=== PATIENT | female | born 1975 | race Caucasian/White ===

== ENCOUNTER 2019-12-12 06:21 | Day surgery (SDC) | payer OTHER, SELFPAY ==
[2019-10-03 14:56] VITALS: BMI 61.9
--- NOTE | 2019-12-12 | GASB_PTH ---
PATIENT: JOSE BONILLA LOC: EN U#:[id number] AGE/SX: 44/F ROOM: RE12/12/[address]: Dr. Edwin Michael MD : 1975 BED: DIS: 12/12/2019 SPEC #: [id number] RECD: 12/12/19 12:29 STATUS: NILO REJoe #: [id number] NARA: 12/12/19 00:[address]: Edwin Michael DEPT: SURGICAL PATHOLOGY RECD BY: Steve Silva ENTERED: 12/12/19 12:30 SP TYPE: Gastric Bx OTHR DR: Dr. Jone Ervin, DO Tissues: Gastric mucous membrane Procedures: Surgery Specimen Level IV HEADER OPERATION: EGD ([facility]) PRE-OP DIAGNOSIS: Nausea, vomiting, calculus of gallbladder TISSUE SUBMITTED: Antrum biopsy for histo and H. pylori MICROSCOPIC DIAGNOSIS Antrum biopsy: Minimal chronic inflammation. SJ:luz maria 12/13/19 COMMENT The results of immunohistochemistry for Helicobacter pylori will be reported separately ([id number]). MICROSCOPIC DESCRIPTION Slides are reviewed. GROSS DESCRIPTION Received in fixative is one container labeled with the patient's name and designated antrum biopsy. The specimen consists of one irregular fragment of light raman soft tissue that measures 0.5 x 0.1 x 0.1 cm. The specimen is totally submitted in one cassette. / AM:rg 12/12/19 TC:3 CPT: 30996
[2019-12-12 06:41] VITALS: BP 136/70; PULSE 81; RESP 18; TEMP 36.6; O2SAT 99; BMI 61.9
[2019-12-12 06:46] LABS: Bedside Glucose 148 mg/dL (70-110)
[2019-12-12] MEDS: Lactated Ringers 1,000 ML 100 ML IV (07:00)
--- NOTE | 2019-12-12 07:22 | HP.PCM_ITS ---
History and Physical Date of Admission: 12/12/19 [facility] 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 Is patient in pain?: Yes (RUQ abdomen) Allergies Opioids - Morphine Analogues Allergy (Mild, Verified 10/03/19 14:58) Other Penicillins Allergy (Mild, Verified 10/03/19 14:58) Unknown shellfish derived Allergy (Mild, Verified 10/03/19 14:58) Unknown Sulfa (Sulfonamide Antibiotics) Allergy (Mild, Verified 10/03/19 14:58) Other Medications albuterol sulfate 90 mcg/actuation aerosol inhaler INHALATION 10/03/19 [History Confirmed 10/03/19] duloxetine 60 mg capsule,delayed release cap PO 10/03/19 [History Confirmed 10/03/19] esomeprazole magnesium 40 mg capsule,delayed release cap PO 10/03/19 [History Confirmed 10/03/19] furosemide 40 mg tablet tab PO 10/03/19 [History Confirmed 10/03/19] gabapentin 600 mg tablet tab PO 10/03/19 [History Confirmed 10/03/19] lisinopril 20 mg tablet tab PO 10/03/19 [History Confirmed 10/03/19] lorazepam 1 mg tablet 1 mg PO DAILY PRN 10/03/19 [History Confirmed 10/03/19] metformin 500 mg tablet,extended release 24 hr tab PO 10/03/19 [History Confirmed 10/03/19] methocarbamol 750 mg tablet tab PO 10/03/19 [History Confirmed 10/03/19] montelukast 10 mg tablet tab PO 10/03/19 [History Confirmed 10/03/19] norethindrone (contraceptive) 0.35 mg tablet tab PO 10/03/19 [History Confirmed 10/03/19] prednisone 10 mg tablet tab PO 10/03/19 [History Confirmed 10/03/19] promethazine 25 mg rectal suppository supp RC 10/03/19 [History Confirmed 10/03/19] simvastatin 40 mg tablet tab PO 10/03/19 [History Confirmed 10/03/19] topiramate 50 mg tablet 50 mg PO BID 10/03/19 [History Confirmed 10/03/19] FOR[facility] Medical History Asthma (Acute) CAD (coronary artery disease) (Acute) Diabetes (Acute) Diarrhea (Acute) Nausea (Acute) Obesity (Acute) Reflux gastritis (Acute) HTN (hypertension) (Chronic) Surgical History Dilatation of bladder (Acute) S/P hysterectomy (Acute) S/P tonsillectomy (Acute) S/P wisdom tooth extraction (Acute) s/p right elbow surgery (Acute) Social History (Updated 10/07/19 @ 12:[address] Edwin Michael MD) Smoking Status: Former smoker alcohol intake: never HPI HPI HPI: JOSE BONILLA, is a 44 F who presents to the office today for Evaluation of some nausea vomiting and diarrhea. Patient states she is only able to eat chicken noodle soup. She stopped all pops and carbonated beverages. She has had increased gas. This is been ongoing since May 2019. She also States that she has been under a lot of stress lately. She says that in 2010 she had an upper and lower scope which was normal per the patient. However they started her on antibiotics at that time which did improve her abdominal discomfort. She had a gallbladder ultrasound which showed a 4 mm focus of either a polyp or a stone in her gallbladder. The gallbladder was normal in caliber. There was no pericholecystic fluid. There was a negative Manning sign. And her common bile duct was 6 mm. ROS General General: Yes weight change and fatigue; no appetite, colon cancer, breast cancer or weakness HEENT HEENT: No difficulty swallowing, eye injury, eye surgery, swollen glands or hoarseness Endo Endocrine: Yes diabetes mellitus; no thyroid disease, thyroid cancer, Hair loss, heat intolerance or cold intolerance Skin Skin: No rash or changing moles Breast Breast: No left breast lump, right breast lump, nipple discharge, breast pain, abnormal mammogram, abnormal US or breast enlargement Musc Musculoskeletal: Yes back problems and arthritis; no rheumatoid arthritis, gout or joint pain Cardio Cardiovascular: Yes high blood pressure; no murmur, pacemaker, heart disease, atrial fibrillation, heart attack, heart stent, palpitations, shortness of breat with exertion or chest pain Psych Psychiatric: Yes depression and anxiety; no hearing voices Resp Respiratory: Yes shortness of breath, Yes sleep apnea, No cough, No COPD, Yes asthma, No emphysema, No wheezing Gastro Gastrointestinal: Yes abdominal pain, Yes nausea or vomiting, Yes diarrhea, Yes constipation, No blood in stool, Yes acid reflux, Yes hemorrhoids, No ulcers, Yes gallbladder problem, No black,tarry stools Get Hematologic: No blood thinners, No blood disorders, No bleeding, No anemia, No blood clots Neuro Neurologic: No system reviewed and no additional complaints, except as docu, No as per HPI, No abnormal walking, No abnormal hearing, No abnormal movements, No abnormal speech, No behavioral changes, No burning sensations, No confusion, No seizure-like activity, No unsteadiness, No dizziness, No localized weakness, No frequent falls, No headache(s), No lack of coordination, No loss of vision, No memory loss, Yes numbness, No other visual disturbances, No radiating pain, No restless legs, No sensory deficit, No fainting, Yes tingling, No tremor(s), No weakness, No other Exam Const General: no acute distress, well developed, well hydrated Orientation: oriented to person, oriented to place, oriented to time [place] Head: normocephalic, atraumatic Ears: external ears normal Mouth: moist mucous membranes Eyes Sclera: sclerae normal Pupils: normal by confrontation Neck Neck: no lymphadenopathy noted Neck mass: No Thyroid: thyroid normal, symmetrical Chest Chest palpation & inspection: normal inspection of the chest Breast Palpation: No nipple discharge Resp Effort & Inspection: normal respiratory effort Auscultation: clear to auscultation bilaterally Percussion: percussion normal Cardio Rate: regular rate Rhythm: regular rhythm Heart Sounds: no murmurs GI Inspection: obesity (Morbid obesity) Palpation: soft, no hepatosplenomegaly, no masses, nontender Rectal Exam: other Other: Rectal exam deferred. Extrem General: normal to inspection, no clubbing, cyanosis or edema Assessment & Plan Problems 1. Nausea vomiting and diarrhea R11.2; R19.7 2. Calculus of gallbladder with chronic cholecystitis without obstruction K80.10 Plan I have discussed the above with the patient. I have offered the patient esophagogastroduodenoscopy for evaluation. I have explained the risks/benefits of the procedure and described the procedure. I have discussed the risks with the patient, including but not limited to: infection, bleeding, perforation of the GI tract requiring emergency surgery, inability to complete the procedure, injury to any internal organs, complications of anesthesia, etc. - the patient understands and agrees to proceed. I have answered all the patient's questions to the patient's satisfaction and the patient has no further questions. The patient has been given instructions for the colon cleansing preparation. If the upper scope is negative then she may need to be referred to a tertiary referral center for a laparoscopic cholecystectomy Coding Level of Care Code Off vis,new,level 3 Diagnoses Nausea vomiting and diarrhea R11.2; R19.7 Calculus of gallbladder with chronic cholecystitis without obstruction K80.10 ??Cholelithiasis location: gallbladder ??Cholecystitis acuity: chronic <Electronically signed by Edwin Michael MD> Date _ Edwin Michael MD I have re-examined the patient. There are no clinical changes since date of exam.
--- NOTE | 2019-12-12 07:30 | IMM_PTH ---
PATIENT: JOSE BONILLA LOC: EN U#:[id number] AGE/SX: 44/F ROOM: RE12/12/[address]: Dr. Edwin Michael MD : 1975 BED: DIS: 12/12/2019 SPEC #: [id number] RECD: 12/12/19 12:40 STATUS: SOUT REJoe #: [id number] NARA: 12/12/19 07:[address]: Edwin Michael DEPT: IMMUNOHISTOCHEMISTRY RECD BY: Maria Del Carmen Bella ENTERED: 12/12/19 12:41 SP TYPE: IMMUNO OTHR DR: Dr. Jone Ervin DO Tissues: Stomach, NOS Procedures: H Pylori (initial) PHYSICIAN & INSTITUTION [place] [id number] SPECIMEN INFORMATION: Tissue Source: Antrum biopsy Clinical Info: Nausea, vomiting, calculus of gallbladder Specimen Number: [id number] CPT code: 04652 METHODOLOGY: Deparaffinized sections of prefer/formalin-fixed tissue or PAP/DQ stained slides are incubated with monoclonal/polyclonal antibodies/oligonucleotide probes. Localization is made via biotin free immunoperoxidase method. Appropriate controls are performed and reacted as expected. Results on target cell population are indicated in the following table: RESULTS: ANTIBODY / CLONE RESULT H Pylori (polyclonal) negative These tests were developed and their performance characteristics determined by [facility]. They may not have been cleared or approved by the U.S. Food and Drug Administration. The FDA has determined that such clearance or approval is not necessary. INTERPRETATION: Antrum biopsy: Negative for Helicobacter pylori organisms. SJ:luz maria 12/14/19
--- NOTE | 2019-12-12 07:43 | OP.EGD_ITS ---
Patient Name: Stefany Reid Procedure Date: 12/12/2019 7:23 AM Date of : 1975 Age: 44 Procedure: Upper GI endoscopy Indications: Diarrhea, Vomiting Providers: Edwin Michael MD Referring MD: Jone Ervin Medicines: See the Anesthesia note for documentation of the administered medications Patient Profile: This is a 44 year old female. Refer to note in patient chart for documentation of history and physical. Complications: No immediate complications. Procedure: Pre-Anesthesia Assessment: - Prior to the procedure, a History and Physical was performed, and patient medications and allergies were reviewed. The patient's tolerance of previous anesthesia was also reviewed. The risks and benefits of the procedure and the sedation options and risks were discussed with the patient. All questions were answered, and informed consent was obtained. Prior Anticoagulants: The patient has taken no previous anticoagulant or antiplatelet agents. ASA Grade Assessment: III - A patient with severe systemic disease. After reviewing the risks and benefits, the patient was deemed in satisfactory condition to undergo the procedure. After obtaining informed consent, the endoscope was passed under direct vision. Throughout the procedure, the patient's blood pressure, pulse, and oxygen saturations were monitored continuously. The gastroscope was introduced through the mouth, and advanced to the second part of duodenum. The upper GI endoscopy was accomplished without difficulty. The patient tolerated the procedure well. Scope In: 7:34:23 AM Scope Out: 7:37:30 AM Total Procedure Duration Time 0 hours 3 minutes 7 seconds Findings: The examined esophagus was normal. No biopsies or other specimens were collected for this exam. The Z-line was regular and was found 40 cm from the incisors. A large amount of food (residue) was found on the greater curvature of the stomach. Biopsies were taken with a cold forceps for Helicobacter pylori testing. The examined duodenum was normal. No biopsies or other specimens were collected for this exam. Impression: - Normal esophagus. No specimens collected. - Z-line regular, 40 cm from the incisors. - A large amount of food (residue) in the stomach. Biopsied. - Normal examined duodenum. No specimens collected. Recommendation: - Discharge patient to home. - Resume previous diet. - Continue present medications. - Await pathology results. - Repeat upper endoscopy (date not yet determined) for surveillance. - Return to my office in 1 week. - Do a gastric emptying study at appointment to be scheduled. Procedure Code(s): --- Professional --- 30584, Esophagogastroduodenoscopy, flexible, transoral; with biopsy, single or multiple Diagnosis Code(s): --- Professional --- R19.7, Diarrhea, unspecified R11.10, Vomiting, unspecified CPT copyright 2017 [employer]. All rights reserved. The codes documented in this report are preliminary and upon supervisor sample preparation review may be revised to meet current compliance requirements. MD Edwin Hurt MD 12/12/2019 7:43:17 AM This report has been signed electronically. Number of Addenda: 0 Note Initiated On: 12/12/2019 7:23 AM
--- NOTE | 2019-12-12 07:43 | OP.CCLET_ITS ---
12/12/2019 Jone Ervin Re : Upper GI endoscopy procedure for Stefany Reid Dear [place] This procedure was performed on Thursday, December 12, 2019. My impressions and recommendations are as follows: Impressions : - Normal esophagus. No specimens collected. - Z-line regular, 40 cm from the incisors. - A large amount of food (residue) in the stomach. Biopsied. - Normal examined duodenum. No specimens collected. Recommendations : - Discharge patient to home. - Resume previous diet. - Continue present medications. - Await pathology results. - Repeat upper endoscopy (date not yet determined) for surveillance. - Return to my office in 1 week. - Do a gastric emptying study at appointment to be scheduled. My findings are described in the full procedure note, which is enclosed. If I can be of further assistance, please feel free to contact me at Doctor phone number(s): , Fax: [phone], Work: . Sincerely, MD Edwin Hurt MD 12/12/2019 7:43:17 AM This report has been signed electronically.
[2019-12-12 07:45] VITALS: BP 105/88; BP 107/77; BP 136/70; PULSE 79; RESP 16; TEMP 36.3; O2SAT 100; O2SAT 99
[2019-12-12 07:50] VITALS: BP 118/89; BP 136/70; PULSE 77; RESP 16; O2SAT 95
[2019-12-12 07:55] VITALS: BP 111/84; BP 136/70; PULSE 75; RESP 16; TEMP 36.2; O2SAT 97
[2019-12-12 08:25] VITALS: BP 136/70
== END 2019-12-12 08:45 | disposition home or self-care (01) ==
LOC: EN 06:22 → AC 06:23
PROVIDERS: PCP Family Medicine; Referring Provider Family Medicine; Visit Provider Surgery
PROC: 0DJ08ZZ Inspection of Upper Intestinal Tract, Via Natural or Artificial Opening Endoscopic (ICD-10-PCS; CPT 43235; principal; 2019-12-12 07:25)
DX: K29.50 Unspecified chronic gastritis without bleeding (principal); K80.10 Calculus of gallbladder with chronic cholecystitis without obstruction; E11.9 Type 2 diabetes mellitus without complications; I10 Essential (primary) hypertension; E78.00 Pure hypercholesterolemia, unspecified; J45.909 Unspecified asthma, uncomplicated; G47.30 Sleep apnea, unspecified; G25.81 Restless legs syndrome; K21.9 Gastro-esophageal reflux disease without esophagitis; F32.9 Major depressive disorder, single episode, unspecified; F41.9 Anxiety disorder, unspecified; E66.9 Obesity, unspecified; Z68.44 Body mass index [BMI] 60.0-69.9, adult; Z79.51 Long term (current) use of inhaled steroids; Z79.84 Long term (current) use of oral hypoglycemic drugs; Z88.0 Allergy status to penicillin; Z88.5 Allergy status to narcotic agent; Z88.2 Allergy status to sulfonamides; Z87.891 Personal history of nicotine dependence; Z87.19 Personal history of other diseases of the digestive system
CPT/HCPCS: 43239; 82962; 88305; 88342; J7120; J2405

== ENCOUNTER → 2019-12-26 10:21 | Outpatient (CLI) | payer OTHER, SELFPAY ==
[2019-12-12 06:41] VITALS: BMI 61.9
--- NOTE | 2019-12-26 10:22 | NM_ITS ---
CLINICAL: 44-year-old female with reported history of right upper quadrant abdominal pain and nausea. RADIONUCLIDE HEPATOBILIARY SCINTIGRAPHY COMPARISON: None available FINDINGS: Following the intravenous administration of 5.2 mCi of 99m Tc Mebrofenin, hepatobiliary images reveal: 1. Relatively prompt and homogeneous radiopharmaceutical concentration is noted by a normal sized liver. No parenchymal defects are identified. 2. Gallbladder activity is identified at 15 minutes post radiopharmaceutical administration. 3. Small intestinal tract is not visualized during 60 minutes of pre-CCK sequential imaging acquisition, small bowel is observed following cholecystokinin infusion. 4. Washout of the radiopharmaceutical by the hepatic parenchyma appears qualitatively normal. Cholecystokinin (0.02 ug/kg) was administered intravenously over a 30-minute period. The post CCK gallbladder ejection fraction calculated at 20 minutes following Cholecystokinin administration was noted to be 28.0 % (normal greater than 35%). NM/Hepatobilliary Img w/Pharm Int IMPRESSION: 1. ABNORMAL 99m Tc Mebrofenin hepatobiliary imaging examination with Cholecystokinin. A. A gallbladder ejection fraction calculated to be less than 35% following the administration of Cholecystokinin is consistent with the presence of functional hepatobiliary disease (gallbladder and/or sphincter of Oddi dyskinesia) and/or organic hepatobiliary disease (chronic acalculous cholecystitis and/or cystic duct syndrome) in patients with intermediate to high pretest probabilities of hepatobiliary illness. (Mine Hernandez et al, Journal of Nuclear Medicine 32:1695, 1991). Electronically Signed: Ken Tao DO at 23:08 EDT Tel , Service support ,
== END ==
PROVIDERS: PCP Family Medicine; Referring Provider Surgery; Visit Provider Surgery
DX: R10.9 Unspecified abdominal pain (principal); R11.2 Nausea with vomiting, unspecified; R19.7 Diarrhea, unspecified
CPT/HCPCS: 78227; A9537; J2805

== ENCOUNTER 2020-01-31 05:43 | Day surgery (SDC) | payer OTHER, SELFPAY ==
[2019-12-27 14:03] VITALS: BMI 61.9
[2020-01-31] VITALS (12 sets, daily range): BP systolic 87–139; BP diastolic 50–87; PULSE 70–88; RESP 16–18; TEMP 36.2–36.7; O2SAT 92–99; BMI 61.8
[2020-01-31 06:35] LABS: Bedside Glucose 196 mg/dL (70-110)
[2020-01-31 06:43] LABS: Hematocrit 38.2 % (37-47); Hemoglobin 12.4 g/dL (12.0-15.0); Mean Corp Hgb Conc 32.5 g/dL (32-36); Mean Corpuscular Hgb 31.6 pg (27.0-32.0); Mean Corpuscular Volume 97.2 fL (81-99); Mean Platelet Vol. 10.4 fl (6.2-12.0); Platelet Count 314 K/mm3 (150-450); RBC Distribution Width CV 13.6 % (11.6-14.6); RBC Distribution Width SD 48.7 fl (35.1-43.9); Red Blood Count 3.93 M/mm3 (4.2-5.4); White Blood Count 10.2 K/mm3 (4.4-11.0)
[2020-01-31] MEDS: Lactated Ringers 1,000 ML 100 ML IV ×2 (06:48→09:01)
--- NOTE | 2020-01-31 06:51 | EKG12_ITS ---
Test Reason : PREOP Blood Pressure : / mmHG Vent. Rate : 075 BPM Atrial Rate : 075 BPM P-R Int : 132 ms QRS Dur : 110 ms QT Int : 406 ms P-R-T Axes : 023 005 030 degrees QTc Int : 453 ms Normal sinus rhythm Normal ECG No previous ECGs available Confirmed by KEVIN MARTINEZ ([id number]), medical transcription editor PUMA SALAZAR ([id number]) on 02/07/2020 12:04:25 PM Referred By: Kevin Michael Confirmed By:KEVIN MARTINEZ
[2020-01-31 06:59] LABS: Anion Gap 10 (5-15); BUN 9 mg/dL (7-18); BUN/Creat Ratio 8.1 RATIO (10-20); Calcium,Total 9.3 mg/dL (8.5-10.1); Chloride 108 mmol/L (98-107); Creatinine, Serum 1.11 mg/dL (0.55-1.02); EST Glomerular Filtration Rate 56 mL/min (>60); Est Glom Filt Rate - Afr Amer 68 mL/min (>60); Estimated Creatinine Clearance 57.59 ml/min; Glucose 176 mg/dL (74-106); Potassium 3.2 mmol/L (3.5-5.1); Sodium Level 140 mmol/L (136-145)
--- NOTE | 2020-01-31 07:01 | HP.PCM_ITS ---
History and Physical Date of Admission: 01/31/20 [facility] [address] [place] [id number] MR#: [id number] Acct: [id number] Name: JOSE BONILLA Rep #: [id number] : 1975 Provider: Dr. Tiago Michael MD Age/Sex: 44/F Location: [facility] Status: Signed Intake Vital Signs 12/27/19 Height 5 ft 5 in 12/27/19 Weight: 372 lb 12/27/19 BMI 61.9 12/27/19 BP 125/68 H 12/27/19 Blood Pressure Location Lt radial 12/27/19 Position Sitting 12/27/19 Respiration 18 12/27/19 Temp 97.5 F L 12/27/19 Temp Source Temporal Intake Visit Reasons: discuss hida Chief Complaint: Follow up EGD Allergies Opioids - Morphine Analogues Allergy (Mild, Verified 12/20/19 13:35) Other Penicillins Allergy (Mild, Verified 12/20/19 13:35) Unknown shellfish derived Allergy (Mild, Verified 12/20/19 13:35) Unknown Sulfa (Sulfonamide Antibiotics) Allergy (Mild, Verified 12/20/19 13:35) Other Medications albuterol sulfate 90 mcg/actuation aerosol inhaler 1 - 2 puff INHALATION PRN PRN 10/03/19 [History Confirmed 12/27/19] duloxetine 60 mg capsule,delayed release 60 cap PO DAILY 10/03/19 [History Confirmed 12/27/19] furosemide 40 mg tablet 40 tab PO DAILY 10/03/19 [History Confirmed 12/27/19] gabapentin 600 mg tablet 1,200 tab PO BID 10/03/19 [History Confirmed 12/27/19] lisinopril 20 mg tablet 20 tab PO DAILY 10/03/19 [History Confirmed 12/27/19] lorazepam 1 mg tablet 1 mg PO DAILY PRN 10/03/19 [History Confirmed 12/27/19] metformin 500 mg tablet,extended release 24 hr 1,000 tab PO DINNER 10/03/19 [History Confirmed 12/27/19] methocarbamol 750 mg tablet 750 tab PO TID 10/03/19 [History Confirmed 12/27/19] montelukast 10 mg tablet 10 tab PO DAILY 10/03/19 [History Confirmed 12/27/19] promethazine 25 mg rectal suppository 25 supp RC PRN PRN 10/03/19 [History Confirmed 12/27/19] simvastatin 40 mg tablet 40 tab PO DAILY 10/03/19 [History Confirmed 12/27/19] topiramate 50 mg tablet 50 mg PO BID 10/03/19 [History Confirmed 12/27/19] Albuterol Aerosols [Ventolin Aerosols] 2.5 mg INHALATION QHS 10/22/19 [History Confirmed 12/27/19] Esomeprazole Mag Trihydrate [Nexium] 40 mg PO DAILY 10/22/19 [History Confirmed 12/27/19] Famotidine [Pepcid] 40 mg PO DINNER 10/22/19 [History Confirmed 12/27/19] Ondansetron HCl [Zofran] 4 - 8 mg PO PRN PRN 10/22/19 [History Confirmed 12/27/19] buPROPion XL [Wellbutrin Xl] 150 mg PO DAILY 10/22/19 [History Confirmed 12/27/19] [facility] Medical History Asthma (Acute) CAD (coronary artery disease) (Acute) Diabetes (Acute) Diarrhea (Acute) Nausea (Acute) Obesity (Acute) Reflux gastritis (Acute) HTN (hypertension) (Chronic) Surgical History Dilatation of bladder (Acute) History of esophagogastroduodenoscopy (EGD) (Acute ~12/12/19) S/P hysterectomy (Acute) S/P tonsillectomy (Acute) S/P wisdom tooth extraction (Acute) s/p right elbow surgery (Acute) Social History (Updated 12/28/19 @ 09:[address] Edwin Michael MD) Smoking Status: Former smoker alcohol intake: never HPI HPI HPI: JOSE BONILLA, is a 44 F who presents to the office today for Follow-up from a HIDA scan. Patient underwent a HIDA scan with ejection fraction at [facility] on 12/26/2019. This showed an ejection fraction to be 28%. Patient states she is only able to eat chicken noodle soup. She stopped all pops and carbonated beverages. She has had increased gas. This is been ongoing since May 2019. She also States that she has been under a lot of stress lately. She says that in 2010 she had an upper and lower scope which was normal per the patient. However they started her on antibiotics at that time which did improve her abdominal discomfort. She had a gallbladder ultrasound which showed a 4 mm focus of either a polyp or a stone in her gallbladder. The gallbladder was normal in caliber. There was no pericholecystic fluid. There was a negative Manning sign. And her common bile duct was 6 mm. Patient status post [place] [facility] [place] Patient had a large amount of residual food in her stomach made it difficult to ascertain if there is anything wrong in her stomach. She had been complaining of nausea vomiting with diarrhea. She is been having to watch what she eats and she has waves that come on sporadically. Biopsy showed some chronic inflammation and was H. pylori negative. ROS General General: Yes weight change and fatigue; no appetite, colon cancer, breast cancer or weakness HEENT HEENT: No difficulty swallowing, eye injury, eye surgery, swollen glands or hoarseness Endo Endocrine: Yes diabetes mellitus; no thyroid disease, thyroid cancer, Hair loss, heat intolerance or cold intolerance Skin Skin: No rash or changing moles Breast Breast: No left breast lump, right breast lump, nipple discharge, breast pain, abnormal mammogram, abnormal US or breast enlargement Musc Musculoskeletal: Yes back problems and arthritis; no rheumatoid arthritis, gout or joint pain Cardio Cardiovascular: Yes high blood pressure; no murmur, pacemaker, heart disease, atrial fibrillation, heart attack, heart stent, palpitations, shortness of breat with exertion or chest pain Psych Psychiatric: Yes depression and anxiety; no hearing voices Resp Respiratory: Yes shortness of breath, Yes sleep apnea, No cough, No COPD, Yes asthma, No emphysema, No wheezing Gastro Gastrointestinal: Yes abdominal pain, Yes nausea or vomiting, Yes diarrhea, Yes constipation, No blood in stool, Yes acid reflux, Yes hemorrhoids, No ulcers, Yes gallbladder problem, No black,tarry stools Get Hematologic: No blood thinners, No blood disorders, No bleeding, No anemia, No blood clots Neuro Neurologic: No weakness Exam Const General: no acute distress, well developed, well hydrated Orientation: oriented to person, oriented to place, oriented to time [facility] Head: normocephalic, atraumatic Ears: external ears normal Mouth: moist mucous membranes Eyes Sclera: sclerae normal Pupils: normal by confrontation Neck Neck: no lymphadenopathy noted Neck mass: No Thyroid: thyroid normal, symmetrical Chest Chest palpation & inspection: normal inspection of the chest Breast Palpation: No nipple discharge Resp Effort & Inspection: normal respiratory effort Auscultation: clear to auscultation bilaterally Percussion: percussion normal Cardio Rate: regular rate Rhythm: regular rhythm Heart Sounds: no murmurs GI Inspection: obesity Palpation: soft, no hepatosplenomegaly, no masses, nontender Rectal Exam: other Other: Rectal exam deferred. Extrem General: normal to inspection, no clubbing, cyanosis or edema Assessment & Plan Problems 1. Calculus of gallbladder with chronic cholecystitis without obstruction K80.10 2. Nausea vomiting and diarrhea R11.2; R19.7 Plan My plan is to perform a laparoscopic cholecystectomy without intraoperative cholangiogram. The planned surgical procedure was discussed extensively with the patient. The risks, benefits, anticipated outcomes and possible complication were mentioned. My staff has also explained the procedure in understandable terms and the patient was given the option to take printed material concerning the planned procedure. The patient had the opportunity to ask questions concerning the planned procedure. The patient freely consents to the planned procedure. Coding Level of Care Code Off vis,est,level 3 Diagnoses Calculus of gallbladder with chronic cholecystitis without obstruction K80.10 ??Cholelithiasis location: gallbladder ??Cholecystitis acuity: chronic Nausea vomiting and diarrhea R11.2; R19.7 01/31/20 <Electronically signed by Edwin Michael MD > Date _ Edwin Michael MD Cosigner Signature: Date (if applicable) CC: Dr. Jone Ervin, DO ~ I have re-examined the patient. There are no clinical changes since date of exam.
--- NOTE | 2020-01-31 07:30 | GALL_PTH ---
PATIENT: JOSE BONILLA [place] [facility] [place][id number] AGE/SX: 44/F ROOM: RE01/31/[address]: Dr. Edwin Michael MD : 1975 BED: DIS: 01/31/2020 SPEC #: [id number] RECD: 01/31/20 09:00 STATUS: NILO MIRANDA #: [id number] NARA: 01/31/20 07:[address]: Edwin Michael DEPT: SURGICAL PATHOLOGY RECD BY: Ahmet Brown ENTERED: 01/31/20 09:17 SP TYPE: PATRICK PINA DR: Dr. Jone Ervin, DO Tissues: Gallbladder, NOS Procedures: Surgery Specimen Level III HEADER OPERATION: Laparoscopic cholecystectomy PRE-OP DIAGNOSIS: Calculus of gallbladder, chronic cholecystitis TISSUE SUBMITTED: Gallbladder MICROSCOPIC DIAGNOSIS Gallbladder, cholecystectomy: Cholesterolosis, chronic cholecystitis and cholelithiasis. AM:luz maria 02/01/20 MICROSCOPIC DESCRIPTION Slides are reviewed. GROSS DESCRIPTION Received is one container labeled with the patient's name and designated gallbladder. The specimen consists of a gallbladder measuring 9 cm in length and up to 3 cm in diameter. The external surface is pink-raman, smooth and glistening for the most part. Focally it is granular, hemorrhagic and contains cautery artifact. The gallbladder contains green-yellow mucoid bile and multiple minute black stones measuring <0.1 to 0.1 cm in greatest dimension, measuring in aggregate 1 x 1 x <0.1 cm. One of the stones is impacted in the cystic duct. The mucosa also shows several yellowish streaks consistent with cholesterolosis. The gallbladder wall measures up to 0.3 cm in thickness. Card Decorator sections from the gallbladder and the cystic duct are submitted in one cassette. / BLANCHE:luz maria 01/31/20 TC:3 CPT: 27480
[2020-01-31] MEDS: Bupivacaine Mpf 0.5% 30 ML VIAL (07:50)
[2020-01-31 08:38] LABS: Hemoglobin A1c 7.3 % (3.8-5.6)
[2020-01-31] MEDS: Ketorolac 30 MG/ML Syringe IV (08:50)
[2020-01-31 10:06] LABS: Bedside Glucose 178 mg/dL (70-110)
--- NOTE | 2020-01-31 10:49 | DCINST_ITS ---
Discharge Diet: Light diet - advance as tolerated Discharge Activity: May Not Drive - for 2-3 days or while taking narcotic pain medications., - - Do not drive, work heavy equipment or sign legal documents for 24 hours. May shower in (days): 1 - with the bandage in place. Additional Activity Instructions:: Pain medication may cause nausea. You should typically eat light foods as you take your pain medications. Pain medication may also cause constipation. If this is a problem for you, please discuss with your doctor. Call your doctor if your incision/area has: Continuous Slow Oozing, Sudden Increased Bleeding, Increased Pain/ Swelling, Increased Redness, Foul Smelling Discharge Call your doctor if you observe: Fever of 101 or Higher Suture Line Care: Avoid Pulling/Pushing, Avoid Pinching/Bending Additional Dressing/Incision Instructions:: Leave operative bandaids on for 2 days. When you remove dressing, leave Steri-Strips on until your follow-up appointment, or until the Steri-Strips fall off on their own. Allergies/Adverse Reactions: Allergies Opioids - Morphine Analogues Allergy (Mild, Verified 01/24/20 15:36) Other Penicillins Allergy (Mild, Verified 01/24/20 15:36) Unknown shellfish derived Allergy (Mild, Verified 01/24/20 15:36) Unknown Sulfa (Sulfonamide Antibiotics) Allergy (Mild, Verified 01/24/20 15:36) Other Medications to take at Discharge albuterol sulfate 90 mcg/actuation aerosol inhaler 1 - 2 puff INHALATION PRN PRN 10/03/19 duloxetine 60 mg capsule,delayed release 60 cap PO DAILY 10/03/19 furosemide 40 mg tablet 40 tab PO DAILY 10/03/19 gabapentin 600 mg tablet 1,200 tab PO BID 10/03/19 lisinopril 20 mg tablet 20 tab PO DAILY 10/03/19 lorazepam 1 mg tablet 1 mg PO DAILY PRN 10/03/19 metformin 500 mg tablet,extended release 24 hr 1,000 tab PO DINNER 10/03/19 methocarbamol 750 mg tablet 750 tab PO TID 10/03/19 montelukast 10 mg tablet 10 tab PO QHS 10/03/19 promethazine 25 mg rectal suppository 25 supp RC PRN PRN 10/03/19 simvastatin 40 mg tablet 40 tab PO DAILY 10/03/19 topiramate 50 mg tablet 50 mg PO BID 10/03/19 Albuterol Aerosols [Ventolin Aerosols] 2.5 mg INHALATION QHS 10/22/19 Esomeprazole Mag Trihydrate [Nexium] 40 mg PO DAILY 10/22/19 Famotidine [Pepcid] 40 mg PO DINNER 10/22/19 Ondansetron HCl [Zofran] 4 - 8 mg PO PRN PRN 10/22/19 buPROPion XL [Wellbutrin Xl] 300 mg PO DAILY 10/22/19 Lisinopril 20 mg PO 01/31/20 Oxycodone HCl/Acetaminophen [Percocet 5/325] 1 - 2 tab PO Q4H PRN PRN 6 Days #30 tab 01/31/20 The following prescriptions were given: Oxycodone HCl/Acetaminophen [Percocet 5/325] 1 - 2 tab PO Q4H PRN PRN 6 Days #30 tab PRN Reason: Pain Transmission Status: Received by [facility] Primary Care Physician: Jone Ervin DO [Primary Care Provider] - Test Results: Test results from this visit will be discussed in further detail at your follow- up appointment, if applicable. Please Follow Up With: Edwin Michael MD - Please call [phone] to schedule an appointment. When: 7 days after your surgery.
--- NOTE | 2020-01-31 10:50 | OP.PCM_ITS ---
Problem List (1) Cholelithiasis Status: Acute Qualifiers: Cholelithiasis location: gallbladder Cholecystitis presence: without cholecystitis Biliary obstruction: without biliary obstruction Qualified Code(s): K80.20 - Calculus of gallbladder without cholecystitis without obstruction Report of Operation Date of Procedure: 01/31/20 Pre-Operative Diagnosis: Symptomatic cholelithiasis Post-Operative Diagnosis: Same Surgery/Procedure Performed:: Laparoscopic cholecystectomy Type of Anesthesia:: General Anesthesiologist: Krishna Snell Specimen's removed: Gallbladder Drains: None Estimated Blood Loss (mL): < 25 cc Description of Procedure: Patient was brought into the operating room. Placed in the supine position. Under excellent general endotracheal ovation we make sure that the patient was properly strapped to the bed and her abdomen was then sterilely prepped and draped. Local was injected supraumbilically. Incision was carried down to the fascia. The fascia was grasped with a [place]. Varies needle was placed inside the abdomen. The abdomen was insufflated to 15 torr. A 10/12 trocar was placed without difficulty. Patient had no adhesions she was placed in the head up and rotated to the left position. A subxiphoid #5 trocar was placed, inferior to this another #5 trocar was placed, laterally a #5 trocar was placed. All these under direct visualization without injury to underlying structures. Fundus of the gallbladder was grasped and retracted in cephalad direction. We used a 45 degree scope I was able to see the infundibulum I grasped this dissected out the cystic duct and the cystic artery and posteriorly to the liver I placed a Hemoclip proximally and distally on the duct and ligated the duct. Placed hemoclips proximally distally on the cystic artery and ligated the artery. I deliver the gallbladder from the gallbladder bed. I had some spillage of bile but no spillage of stones. I was able to retrieve all of the bile. I deliver the gallbladder from the gallbladder bed with use of electrocautery the liver bed had good pneumostasis. Placed a specimen a specimen bag and delivered through the umbilical port without difficulty. I went back in reinflated the abdomen irrigated the right upper quadrant with a liter of irrigation and retrieved all the irrigant. Liver bed once again had good hemostasis. I removed the trocar at the umbilical area I closed this with a GraNee needle of 0 Vicryl. The defect was completely closed. I deflated the abdomen and remove the other trochars without difficulty. Skin incisions were closed with a particular stitches of 4-0 Monocryl. Steri-Strips were applied sterile dressings were applied and the patient tolerated the procedure well. - Admit VTE Documentation VTE Present on Admission: No VTE Mechan Device Prophylaxis: SCD's VTE Pharm Prophylaxis ordered?: No Reason prophylaxis not ordered:: Treatment Not Indicated [id number] Laparoscopic cholecystectomy
[2020-01-31] MEDS: oxyCODONE 5 MG Tablet 10 MG PO (10:51)
[2020-01-31] MEDS: Acetaminophen 325 MG Tablet 650 MG PO (10:51)
== END 2020-01-31 12:29 | disposition home or self-care (01) ==
LOC: SDC 05:43 → AC 05:45
PROVIDERS: Anesthesiology; PCP Family Medicine; Referring Provider Surgery; Visit Provider Surgery
PROC: (CPT 47562; principal; 2020-01-31 07:10)
DX: K80.10 Calculus of gallbladder with chronic cholecystitis without obstruction (principal); Z11.59 Encounter for screening for other viral diseases; I25.10 Atherosclerotic heart disease of native coronary artery without angina pectoris; E11.9 Type 2 diabetes mellitus without complications; J45.909 Unspecified asthma, uncomplicated; M79.7 Fibromyalgia; M19.90 Unspecified osteoarthritis, unspecified site; G47.30 Sleep apnea, unspecified; K21.9 Gastro-esophageal reflux disease without esophagitis; E66.9 Obesity, unspecified; Z68.44 Body mass index [BMI] 60.0-69.9, adult; Z79.84 Long term (current) use of oral hypoglycemic drugs; Z87.891 Personal history of nicotine dependence
CPT/HCPCS: 00790; 47562; 36415; 80048; 82962; 83036; 85027; 87635; 88304; 93005; 94799; C9803; G2023; J7120; J2405; U0003

== ENCOUNTER 2020-02-12 06:52 | Emergency (ER) | payer OTHER, SELFPAY ==
[2020-01-31 06:14] VITALS: BMI 61.8
[2020-02-12 06:54] VITALS: BP 134/72; PULSE 85; RESP 20; TEMP 36.8; O2SAT 94; BMI 65.4
--- NOTE | 2020-02-12 07:14 | ED.VIS.GEN ---
History of Present Illness Chief Complaint: Back Informant: Patient Onset: Days - 2 Narrative: Awakening yesterday with worsening lower back pain. States had slight symptoms the day before yesterday went to bed. Reports history of spondylosis, degenerative back disease, and fusion followed by pain management with Dr. Tong at [place]. Patient is on gabapentin. Denies any loss of bowel or bladder control. States typically sleeps on her right side however waking with pain when she is on her back. Pain shoots down both legs to the ankles. No loss of bowel or bladder control. Patient also on Robaxin reports took her last doses of medications yesterday at 9 PM. She had leftover Percocet from a recent gallbladder surgery [address] Michael for which she took 2 tabs with no relief. She has 1 tab left. She has not had any surgical interventions to her back or any injections. Reports able to walk from her bedroom to her couch this morning. Denies any history of gastric ulcers or kidney injury. Prior similar symptoms: Yes Past Medical History - Allergies and Home Meds Allergies/Adverse Reactions: Allergies Opioids - Morphine Analogues Allergy (Mild, Verified 02/12/20 06:59) Other Penicillins Allergy (Mild, Verified 02/12/20 06:59) Unknown shellfish derived Allergy (Mild, Verified 02/12/20 06:59) Unknown Sulfa (Sulfonamide Antibiotics) Allergy (Mild, Verified 02/12/20 06:59) Other Primary Care Physician: Jone Ervin DO [Primary Care Provider] - Past Medical History: - - Coronary disease, hypertension, gastritis, diabetes, Surgical History: appendectomy Smoking Status: Former smoker Review of Systems General: Denies: Chills, Fever, Sweats Eyes: Denies: Visual changes - bilaterally, Diplopia ENT: Denies: Rhinorrhea, Sore throat Cardiovascular: Denies: Chest pain, Palpitations Respiratory: Denies: Dyspnea, Cough, Dyspnea on exertion Gastrointestinal: Denies: Abdominal pain, Nausea, Vomiting, Diarrhea, Melena, Hematochezia Genitourinary: Denies: Dysuria, Hematuria, Frequency Musculoskeletal: Reports: Back pain. Denies: Extremity Pain Skin: Denies: Rash, Wounds Neurological: Denies: Headache, Weakness, Parasthesia, Numbness Physical Exam Vital Signs/Narrative: Vital Signs Temp Pulse Resp BP Pulse Ox 02/12/20 06:54 98.3 F 85 20 H 134/72 H 94 Inital Vital Signs reviewed: Yes General: Well nourished, Well developed, Obese, - - Lying on left side, uncomfortable Head: Normocephalic, Atraumatic Eyes: Perrl, EOMI ENT: Moist mucous membranes, No rhinorrhea Neck: Supple, Nontender Cardiovascular: Regular rate, Regular rhythm, No murmurs Respiratory: No distress, CTA bilaterally, Chest nontender Abdomen: Soft, Nontender, Nondistended, Normal bowel sounds Back: Normal Inspection, - - Tender palpation lower lumbar, no rash. Straight leg test negative bilaterally. Pulses are intact distally. Extremities: Nontender, No edema Skin: Normal color, No rash Neurological: Alert, Oriented x3, Cranial nerves II-XII grossly intact, Normal Sensation Psychological: Normal affect, Normal Mood Diagnostic/Tx/Re-eval - Medical Decision Making Patient with no cauda equina symptoms. Straight leg test was negative. Treated aggressively with IV medications of Toradol Dilaudid and given p.o. Valium. On reevaluation symptoms significant improved she is able to sit up. She does see pain management. Was given prescription for Motrin and Valium she will hold Robaxin. She will call her pain management doctor for any additional pain treatments as needed. To return if any worsening symptoms. All questions were answered. ED Disposition - Plan for ED Patient: Disposition: Home or Assisted Living Diagnosis: Back pain with sciatica Instructions: Understanding Sciatica Prescriptions: Ibuprofen 600 mg PO 4X/DAY PRN #20 tab PRN Reason: Pain Or Fever Transmission Status: Pending to [facility] Diazepam [Valium] 5 mg PO Q8 PRN #10 tab PRN Reason: Muscle Spasm Transmission Status: Sent to [facility] Referrals: Jone Ervin DO [Primary Care Provider] - Additional Instructions: Call Dr. Tong today for additional medications for treatment as needed.
[2020-02-12] MEDS: HYDROmorphone 1 MG/ML Syringe IV (07:26)
[2020-02-12] MEDS: Ketorolac 15 MG/ML Vial IV (07:26)
[2020-02-12] MEDS: diazePAM 5 MG Tablet PO (07:27)
== END 2020-02-12 08:46 | disposition home or self-care (01) ==
PROVIDERS: Emergency Provider Emergency Medicine; PCP Family Medicine
DX: M54.40 Lumbago with sciatica, unspecified side (principal); I25.10 Atherosclerotic heart disease of native coronary artery without angina pectoris; E11.9 Type 2 diabetes mellitus without complications; I10 Essential (primary) hypertension; E66.9 Obesity, unspecified; Z79.84 Long term (current) use of oral hypoglycemic drugs; Z79.899 Other long term (current) drug therapy; Z87.891 Personal history of nicotine dependence
CPT/HCPCS: 96374; 96375; 99285; A4216